=== PATIENT | male | born 1975 | race Caucasian/White ===

== ENCOUNTER 2020-03-01 13:41 | Emergency (ER) | payer OTHER ==
[2020-03-01] MEDS ORDERED: Zemuron 100 MG/10 ML IJ ONE (13:42)
[2020-03-01] MEDS ORDERED: Zofran 4 MG/2 ML VIAL ONE (13:57)
--- NOTE | 2020-03-01 14:06 | XRAY ---
Indication: Unresponsive. Multiple contiguous axial images obtained through the head without contrast. Comparison: None Acute intraventricular hemorrhage seen in all ventricles, greatest in the third ventricle measuring 3.3 x 2.8 x 2.1 cm. Mild hydrocephalus. No midline shift. Robin-white matter differentiation preserved. Bony calvarium intact. Visualized paranasal sinuses and mastoid air cells are clear. Impression: Diffuse acute intraventricular hemorrhage with mild hydrocephalus. Common etiologies include hypertension, vascular malformations, intra-ventricular tumors, or anticoagulation therapy/coagulopathy. Comment: Telephone report will be immediately given to the ordering clinician.
[2020-03-01 14:11] LABS: Absolute Neutrophil Ct (ANC) 12.04 (1.4-6.9); BASOPHIL % 0.4 % (0.0-0.4); Basophil (Absolute #) 0.06 (0-0.4); Eosinophil % 1.3 % (0.00-5.0); Hematocrit 43.8 % (42-50); Hemoglobin 15.2 gm/dl (12.5-18.0); Lymphocyte (Absolute #) 1.99 (1.0-4.6); Lymphocytes % 13.1 % (24.0-44.0); Mean Cell Volume 86.2 fl (78-100); Mean Corpuscular Hemoglobin 29.9 pg (26-32); Mean Corpuscular Hgb Concent. 34.7 g/dl (32-36); Mean Platelet Volume 10.7 fl (7.5-11.0); Monocyte (Absolute #) 0.94 (0.0-1.3); Monocytes % 6.2 % (0.0-12.0); Platelet Count 284 K/mm3 (150-450); Red Blood Count 5.08 M/mm3 (4.1-5.6); Red Cell Distribution Width 12.9 % (11.5-14.0); White Blood Count 15.2 K/mm3 (4.0-10.5)
[2020-03-01 14:14] LABS: INR 1.02 (0.8-3.0); PROTIME 11.5 SECONDS (8.83-12.87)
[2020-03-01 14:17] LABS: PTT 32.6 SECONDS (24.1-36.1)
[2020-03-01 14:19] LABS: ALBUMIN 4.5 g/dL (3.5-5.0); ALKALINE PHOSPHATASE 106 U/L (38-126); ANION GAP 9.4 MEQ/L (5-15); BLOOD UREA NITROGEN 10 mg/dL (9-20); CHLORIDE 105 mmol/L (98-107); Carbon Dioxide 27 mmol/L (22-30); EST GLOMERULAR FILTRATION RATE > 60.0 ML/MIN; Glucose 109 mg/dL (74-106); Potassium 4.3 mmol/L (3.5-5.1); SGOT/AST 49 U/L (17-59); SGPT/ALT 73 U/L (0-50); SODIUM 137 mmol/L (137-145); Total Protein 7.7 g/dL (6.3-8.2)
[2020-03-01 14:20] VITALS: O2SAT 98
[2020-03-01 14:30] LABS: A-aADO2 447; ABG POTASSIUM 3.9 (3.5-5.1); ABG SITE RIGHT RADIAL; ARTERIAL BLD GAS O2 SATURATION 99.4 % (95-100); ARTERIAL BLD GAS TIDAL VOLUME 550 cc; ARTERIAL BLOOD GAS FIO2 100 %; ARTERIAL BLOOD GAS PCO2 52 mmHg (35-45); ARTERIAL BLOOD GAS PO2 201 mmHg (75-100); ARTERIAL BLOOD GAS pH 7.28 (7.35-7.45); CARBOXYHEMOGLOBIN 2.4 % THgb (0.0-6.9); HCO3- 24.4 (22-28); HGB O2 SAT 95.9 g/dF (94-100); Lactic Acid 2.6 (0.4-2.0); Methhemoglobin 1.1 % (1.4-1.5); paO2 pAO1 0.31
--- NOTE | 2020-03-01 14:35 | ERPHSYRPT ---
- History of Present Illness Source: EMS, other () Exam Limitations: clinical condition Patient Subjective Stated Complaint: unresponsive Triage Nursing Assessment: Patient brought into ED via EMS and transferred to bed with assist of 4. Patient has snoring respirations noted. Patient has 20 gauze IV noted to left arm on arrival. Patient unsponsive at this time, alert to painful stimuli at this time. Patient's stated she had spoke to patient at 1100 and went to check on him around 1330 and he was unsponsive in bed with his pants off and had urinated himself and vomited. EMS was called per . Physician History: 44 yo wm w h/o HTN/Hyperlipidemia presents per EMS unresponsive. Pt wo purposeful movement and alert x0. He arrived hypertensive w good airway/effort. He last talked to his about an hour before he was found unresponsive wo evidence of trauma. L pupil enlarged and unreactive. Pt rushed to CT scan where a large interventricular hemorrhage was observed by myself. He was rushed back to ER where he vomited. He was given Versed 2.5mg x2/15mg IV Etomidate. Pt's sats good before intubation and during intubation. First intubation attempt w Mac3 blade/#8 ETT w possible esophageal intubation which was recognized im mediately. Tube was pulled, and pt was given 100mg IV suc. Pt easily intubated w new #8ETT using a Miller4 blade. Good change of color of detector w good BS. Tube pulled back 1cm x2 due to decreased BS L lung after auscultstion exam and CXR. Good BBS after tube pulled back/100mg Rocuronium given and Diprivan drip started. Allergies/Adverse Reactions: latex [Latex] Allergy (Severe, Verified 03/01/20 13:51) Rash throat swells Home Medications: Esomeprazole Magnesium [Nexium] 40 mg PO DAILY 10/30/12 [History] Atorvastatin Calcium [Lipitor 20MG Tablet] 1 tab PO DAILY 03/01/20 [History] Losartan Potassium [Cozaar] 1 tab PO DAILY 03/01/20 [History] PANTOPRAZOLE 40 mg Tablet [Protonix 40MG Tablet] 1 tab PO DAILY 03/01/20 [History] Hx Tetanus, Diphtheria Vaccination/Date Given: Yes Hx Influenza Vaccination/Date Given: Yes Hx Pneumococcal Vaccination/Date Given: No Immunizations Up to Date: Yes Travel Risk - International Travel Have you traveled outside of the country in past 3 weeks: No - Coronavirus Screening Are you exhibiting any of the following symptoms?: No Close contact with a COVID-19 positive Pt in past 14-21 Days: No - Past Medical History Pertinent Past Medical History: Yes Neurological History: Other ENT History: No Pertinent History Cardiac History: High Cholesterol, Hypertension Respiratory History: No Pertinent History Endocrine Medical History: No Pertinent History Musculoskeletal History: Other GI Medical History: GERD History: No Pertinent History Psycho-Social History: No Pertinent History Male Reproductive Disorders: No Pertinent History Other Medical History: 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 - Social History Smoking Status: Current every day smoker How long have you smoked: 20 yrs Exposure to second hand smoke: Yes Drug Use: none Patient Lives Alone: No - Nursing Vital Signs Nursing Vital Signs: Initial Vital Signs Pulse Rate 84 03/01/20 14:02 Respiratory Rate 20 03/01/20 14:02 Blood Pressure 158/102 03/01/20 14:02 O2 Sat by Pulse Oximetry 98 03/01/20 14:02 Pain Scale Pain Intensity 0 - Physical Exam SpO2: 98 Ordered Tests: Active Orders 24 hr Category Date Time Status HEAD WITHOUT CONTRAST [CT] Stat Exams 03/01/20 13:46 Completed CBC W DIFF Stat Lab 03/01/20 14:00 Completed CMP Stat Lab 03/01/20 14:00 Received CULTURE,URINE Stat Lab 03/01/20 14:19 Ordered D-DIMER QUANTITATIVE Stat Lab 03/01/20 14:00 Completed PROTIME WITH INR Stat Lab 03/01/20 14:00 Completed PTT Stat Lab 03/01/20 14:00 Completed TROPONIN Q3H Lab 03/01/20 14:15 Ordered TROPONIN Q3H Lab 03/01/20 17:15 Ordered TROPONIN Q3H Lab 03/01/20 20:15 Ordered TROPONIN Q3H Lab 03/01/20 23:15 Ordered UA W/RFX UR CULTURE Stat Lab 03/01/20 14:21 Ordered Urine Triage Profile Stat Lab 03/01/20 14:21 Ordered Medication Summary Discontinued Medications Generic Name Dose Route Start Last Admin Trade Name Chad PRN Reason Stop Dose Admin Ondansetron HCl Confirm 03/01/20 13:57 Zofran 4 Mg/2 Ml Vial Administered 03/01/20 13:58 Dose 4 mg .ROUTE .STK-MED ONE Lab/Rad Data: Laboratory Result Diagrams 03/01/20 14:00 Laboratory Results 03/01/20 03/01/20 Range/Units 14:00 14:00 WBC 15.2 H (4.0-10.5) K/mm3 RBC 5.08 (4.1-5.6) M/mm3 Hgb 15.2 (12.5-18.0) gm/dl Hct 43.8 (42-50) % MCV 86.2 (78-100) fl MCH 29.9 (26-32) pg MCHC 34.7 (32-36) g/dl RDW 12.9 (11.5-14.0) % Plt Count 284 (150-450) K/mm3 MPV 10.7 (7.5-11.0) fl Gran % 79.0 H (36.0-66.0) % Eos # (Auto) 0.20 (0-0.5) Absolute Lymphs (auto) 1.99 (1.0-4.6) Absolute Monos (auto) 0.94 (0.0-1.3) Lymphocytes % 13.1 L (24.0-44.0) % Monocytes % 6.2 (0.0-12.0) % Eosinophils % 1.3 (0.00-5.0) % Basophils % 0.4 (0.0-0.4) % Absolute Granulocytes 12.04 H (1.4-6.9) Basophils # 0.06 (0-0.4) PT 11.5 (8.83-12.87) SECONDS INR 1.02 (0.8-3.0) APTT 32.6 (24.1-36.1) SECONDS D-Dimer 243 (215-500) ng/mL - Departure Referrals: [facility]OS[facility],'[facility] [Primary Care Provider] -
--- NOTE | 2020-03-01 14:38 | ERPHSYRPT ---
- History of Present Illness Source: EMS, other () Exam Limitations: clinical condition Patient Subjective Stated Complaint: unresponsive Triage Nursing Assessment: Patient brought into ED via EMS and transferred to bed with assist of 4. Patient has snoring respirations noted. Patient has 20 gauze IV noted to left arm on arrival. Patient unsponsive at this time, alert to painful stimuli at this time. Patient's stated she had spoke to patient at 1100 and went to check on him around 1330 and he was unsponsive in bed with his pants off and had urinated himself and vomited. EMS was called per . Physician History: 44 yo wm last heard from around 11:00AM alert and oriented brought into ER unresponsive after being found down by . No evidence of trauma at scene and unresponsive to Narcan. Pt arrived without purposeful movement/blown L pupil/good airway/hypertensive. Pt rushed to CT scan where intraventricular bleed recognized immediately by myself. He was rushed back to ER where he was prepped for intubation. Pt vomited before intubation, so head turned and pt suctioned. Versed 2.5mg x2 given along w 15mg IV Etomidate. #8ETT placed after direct visualization w #3MAC blade. No change of color so tube pulled, and pt given 100mg IV Succinylcholine. Direct visualization w #4Miller blade w subsequent passage of #8ETT/Good BBS/+color change. Tube slightly R mainstemmed by auscultation exam and CXR, so tube pulled back w good BBS. Pt given 100mg IV Rocuronium, and Diprivan drip started. Timing/Duration: sudden Severity: severe Character of Deficits: general (difuse), unable to speak Baseline/Normal Cognition: alert oriented x 3 Current Cognition: poor alertness Baseline Gait: walks w/o assistance Associated Symptoms: confusion, nausea, vomiting Allergies/Adverse Reactions: latex [Latex] Allergy (Severe, Verified 03/01/20 13:51) Rash throat swells Home Medications: Esomeprazole Magnesium [Nexium] 40 mg PO DAILY 10/30/12 [History] Atorvastatin Calcium [Lipitor 20MG Tablet] 1 tab PO DAILY 03/01/20 [History] Losartan Potassium [Cozaar] 1 tab PO DAILY 03/01/20 [History] PANTOPRAZOLE 40 mg Tablet [Protonix 40MG Tablet] 1 tab PO DAILY 03/01/20 [History] Hx Tetanus, Diphtheria Vaccination/Date Given: Yes Hx Influenza Vaccination/Date Given: Yes Hx Pneumococcal Vaccination/Date Given: No Immunizations Up to Date: Yes Travel Risk - International Travel Have you traveled outside of the country in past 3 weeks: No - Coronavirus Screening Are you exhibiting any of the following symptoms?: No Close contact with a COVID-19 positive Pt in past 14-21 Days: No - Review of Systems All Other Systems: Unable due to condition - Past Medical History Pertinent Past Medical History: Yes Neurological History: Other ENT History: No Pertinent History Cardiac History: High Cholesterol, Hypertension Respiratory History: No Pertinent History Endocrine Medical History: No Pertinent History Musculoskeletal History: Other GI Medical History: GERD History: No Pertinent History Psycho-Social History: No Pertinent History Male Reproductive Disorders: No Pertinent History Other Medical History: 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 - Social History Smoking Status: Current every day smoker How long have you smoked: 20 yrs Exposure to second hand smoke: Yes Drug Use: none Patient Lives Alone: No Significant Family History: no pertinent family hx - Nursing Vital Signs Nursing Vital Signs: Initial Vital Signs Pulse Rate 84 03/01/20 14:02 Respiratory Rate 20 03/01/20 14:02 Blood Pressure 158/102 03/01/20 14:02 O2 Sat by Pulse Oximetry 98 03/01/20 14:02 Pain Scale Pain Intensity 0 - [place] Coma Scale Best Eye Response (Benjy): (1) no response Best Verbal Response ([place]): (1) no verbal response Best Motor Response ([place]): (4) withdraws to pain [place] Total: 6 - Physical Exam General Appearance: severe distress, other (Obtunded) Eye Exam: left eye: abnormal pupil (L pupil blown and unreactive) Ears, Nose, Throat Exam: normal ENT inspection, TMs normal, pharynx normal Neck Exam: normal inspection Respiratory: normal breath sounds, airway intact, No respiratory distress Cardiovascular: regular rate/rhythm, normal heart sounds, normal peripheral pulses, No murmur Gastrointestinal: soft, normal bowel sounds, No tenderness Male Genitalia: normal genitalia Back Exam: normal inspection Extremity Exam: normal inspection Peripheral Pulses: carotid (R): 2+, carotid (L): 2+ 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, 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 Exam: No normal speech, No PERRL, No abnormal eye position, No abnormal gag reflex Motor/Sensory: negative Babinski's sign DTR: bicep (R): 2+, bicep (L): 2+ Skin Exam: normal color, warm, dry SpO2 Interpretation: normal SpO2: 98 O2 Delivery: Room Air Procedures - Intubation Intubation Indications: airway protection Intubation Method: orotracheal, straight blade Tube Size (cm): 8.0 Medications: Midazolam (Versed), Etomidate, Succinylcholine C-Spine: maintained Endotracheal Tube Confirmation: bilateral breath sounds, positive end tidal CO2, good rise & fall of chest Intubation Complications: oral-unsuccessful attempt (First attempt unsuccessful but no drop in sats) Performed By: ED Physician Post Intubation Xray: Yes - Course Nursing assessment & vital signs reviewed: Yes - Radiology Exams Chest X-ray Interpretation: Reviewed by me, Discussed w/ radiologist (ETT in place) - CT Exams Head CT Interpretation: Discussed w/radiologist (Intraventricular bleed) Ordered Tests: Active Orders 24 hr Category Date Time Status CO2 Monitoring ROUTINE Care 03/01/20 15:49 Completed [facility] [Catheter-[place] [facility]] STAT Care 03/01/20 14:39 Completed IV Insertion STAT Care 03/01/20 14:38 Completed IV Insertion-2nd Peripheral STAT Care 03/01/20 14:38 Completed CHEST 1 VIEW (PORTABLE) Stat Exams 03/01/20 14:23 Completed HEAD WITHOUT CONTRAST [CT] Stat Exams 03/01/20 13:46 Completed ABG [ARTERIAL BLOOD GASES] Stat Lab 03/01/20 14:29 Completed CBC W DIFF Stat Lab 03/01/20 14:00 Completed CMP Stat Lab 03/01/20 14:00 Completed CULTURE,URINE Stat Lab 03/01/20 14:44 Received D-DIMER QUANTITATIVE Stat Lab 03/01/20 14:00 Completed Lactic Acid Stat Lab 03/01/20 14:29 Completed PROTIME WITH INR Stat Lab 03/01/20 14:00 Completed PTT Stat Lab 03/01/20 14:00 Completed UA W/RFX UR CULTURE Stat Lab 03/01/20 14:21 Completed Urine Triage Profile Stat Lab 03/01/20 14:21 Completed Intubate Patient STAT RT 03/01/20 15:48 Completed Standby STAT RT 03/01/20 15:48 Completed Vent Settings [Ventilator Management] STAT RT 03/01/20 15:48 Completed Medication Summary Discontinued Medications Generic Name Dose Route Start Last Admin Trade Name Chad PRN Reason Stop Dose Admin Fentanyl Citrate 100 mcg 03/01/20 15:17 03/01/20 15:21 Fentanyl 500 Mcg/10 Ml Vial IV 03/01/20 15:18 100 mcg ONCE STA Administration Fentanyl Citrate Confirm 03/01/20 15:17 Sublimaze 100 Mcg/2 Ml Administered 03/01/20 15:18 Dose 100 mcg .ROUTE .STK-MED ONE Labetalol HCl 20 mg 03/01/20 15:01 03/01/20 15:05 Trandate 20 Mg/4 Ml Syringe IV 03/01/20 15:02 20 mg STAT ONE Administration Labetalol HCl Confirm 03/01/20 15:04 Trandate 20 Mg/4 Ml Syringe Administered 03/01/20 15:05 Dose 20 mg IV .STK-MED ONE Labetalol HCl 20 mg 03/01/20 15:18 03/01/20 15:21 Trandate 20 Mg/4 Ml Syringe IV 03/01/20 15:19 20 mg STAT ONE Administration Labetalol HCl Confirm 03/01/20 15:17 Trandate 20 Mg/4 Ml Syringe Administered 03/01/20 15:18 Dose 20 mg IV .STK-MED ONE Ondansetron HCl Confirm 03/01/20 13:57 Zofran 4 Mg/2 Ml Vial Administered 03/01/20 13:58 Dose 4 mg .ROUTE .STK-MED ONE Lab/Rad Data: Laboratory Result Diagrams 03/01/20 14:00 03/01/20 14:00 Laboratory Results 03/01/20 03/01/20 03/01/20 Range/Units 14:29 14:21 14:21 WBC (4.0-10.5) K/mm3 RBC (4.1-5.6) M/mm3 Hgb (12.5-18.0) gm/dl Hct (42-50) % MCV (78-100) fl MCH (26-32) pg MCHC (32-36) g/dl RDW (11.5-14.0) % Plt Count (150-450) K/mm3 MPV (7.5-11.0) fl Gran % (36.0-66.0) % Eos # (Auto) (0-0.5) Absolute Lymphs (auto) (1.0-4.6) Absolute Monos (auto) (0.0-1.3) Lymphocytes % (24.0-44.0) % Monocytes % (0.0-12.0) % Eosinophils % (0.00-5.0) % Basophils % (0.0-0.4) % Absolute Granulocytes (1.4-6.9) Basophils # (0-0.4) PT (8.83-12.87) SECONDS INR (0.8-3.0) APTT (24.1-36.1) SECONDS D-Dimer (215-500) ng/mL Puncture Site RIGHT RADIAL pCO2 52 H (35-45) mmHg pO2 201 H* (75-100) mmHg Base Excess -3.0 L (-2.0-2.0) O2 Saturation 95.9 (94-100) g/dF ABG pH 7.28 L (7.35-7.45) ABG HCO3 24.4 (22-28) ABG O2 Sat (Measured) 99.4 (95-100) % Zaid Test NOT APPLICABLE A-a Gradient 447 a/A Ratio 0.31 Hemoglobin 16.0 Carboxyhemoglobin 2.4 (0.0-6.9) % THgb Methemoglobin 1.1 L (1.4-1.5) % Temperature 37.0 C POC O2 Flow Rate 100 % Tidal Volume 550 cc Sodium (137-145) mmol/L Potassium 3.9 (3.5-5.1) mmol/L Chloride (98-107) mmol/L Carbon Dioxide (22-30) mmol/L Anion Gap (5-15) MEQ/L BUN (9-20) mg/dL Creatinine (0.66-1.25) mg/dL Estimated GFR ML/MIN Glucose (74-106) mg/dL Lactic Acid 2.6 H (0.4-2.0) Calcium (8.4-10.2) mg/dL Total Bilirubin (0.2-1.3) mg/dL AST (17-59) U/L ALT (0-50) U/L Alkaline Phosphatase (38-126) U/L Serum Total Protein (6.3-8.2) g/dL Albumin (3.5-5.0) g/dL Urine Color YELLOW (YELLOW) Urine Appearance CLEAR (CLEAR) Urine pH 9.0 (5-6) Ur Specific [place] 1.010 (1.005-1.025) Urine Protein 30 (Negative) Urine Ketones NEGATIVE (NEGATIVE) Urine Blood NEGATIVE (0-5) [place]/ul Urine Nitrite NEGATIVE (NEGATIVE) Urine Bilirubin NEGATIVE (NEGATIVE) Urine Urobilinogen NEGATIVE (0-1) mg/dL Ur Leukocyte Esterase NEGATIVE (NEGATIVE) Urine WBC (Auto) NONE (0-5) /HPF Urine RBC (Auto) 0-2 (0-2) /HPF U Epithel Cells (Auto) NONE (FEW) /HPF Urine Bacteria (Auto) NONE (NEGATIVE) /HPF Urine Mucus (Auto) SLIGHT (NEGATIVE) /HPF Urine Culture Reflexed ORDERED SEPARATELY (NO) Urine Glucose NEGATIVE (NEGATIVE) mg/dL Urine Opiates Level NEGATIVE (NEGATIVE) Ur Methadone NEGATIVE (NEGATIVE) Urine Barbiturates NEGATIVE (NEGATIVE) Ur Phencyclidine (PCP) NEGATIVE (NEGATIVE) Urine Amphetamine NEGATIVE (NEGATIVE) U Benzodiazepine Level NEGATIVE (NEGATIVE) Urine Cocaine NEGATIVE (NEGATIVE) Urine Marijuana (THC) NEGATIVE (NEGATIVE) 03/01/20 03/01/20 03/01/20 Range/Units 14:00 14:00 14:00 WBC 15.2 H (4.0-10.5) K/mm3 RBC 5.08 (4.1-5.6) M/mm3 Hgb 15.2 (12.5-18.0) gm/dl Hct 43.8 (42-50) % MCV 86.2 (78-100) fl MCH 29.9 (26-32) pg MCHC 34.7 (32-36) g/dl RDW 12.9 (11.5-14.0) % Plt Count 284 (150-450) K/mm3 MPV 10.7 (7.5-11.0) fl Gran % 79.0 H (36.0-66.0) % Eos # (Auto) 0.20 (0-0.5) Absolute Lymphs (auto) 1.99 (1.0-4.6) Absolute Monos (auto) 0.94 (0.0-1.3) Lymphocytes % 13.1 L (24.0-44.0) % Monocytes % 6.2 (0.0-12.0) % Eosinophils % 1.3 (0.00-5.0) % Basophils % 0.4 (0.0-0.4) % Absolute Granulocytes 12.04 H (1.4-6.9) Basophils # 0.06 (0-0.4) PT 11.5 (8.83-12.87) SECONDS INR 1.02 (0.8-3.0) APTT 32.6 (24.1-36.1) SECONDS D-Dimer 243 (215-500) ng/mL Puncture Site pCO2 (35-45) mmHg pO2 (75-100) mmHg Base Excess (-2.0-2.0) O2 Saturation (94-100) g/dF ABG pH (7.35-7.45) ABG HCO3 (22-28) ABG O2 Sat (Measured) (95-100) % Zaid Test A-a Gradient a/A Ratio Hemoglobin Carboxyhemoglobin (0.0-6.9) % THgb Methemoglobin (1.4-1.5) % Temperature C POC O2 Flow Rate % Tidal Volume cc Sodium 137 (137-145) mmol/L Potassium 4.3 (3.5-5.1) mmol/L Chloride 105 (98-107) mmol/L Carbon Dioxide 27 (22-30) mmol/L Anion Gap 9.4 (5-15) MEQ/L BUN 10 (9-20) mg/dL Creatinine 0.90 (0.66-1.25) mg/dL Estimated GFR > 60.0 ML/MIN Glucose 109 H (74-106) mg/dL Lactic Acid (0.4-2.0) Calcium 9.0 (8.4-10.2) mg/dL Total Bilirubin 0.40 (0.2-1.3) mg/dL AST 49 (17-59) U/L ALT 73 H (0-50) U/L Alkaline Phosphatase 106 (38-126) U/L Serum Total Protein 7.7 (6.3-8.2) g/dL Albumin 4.5 (3.5-5.0) g/dL Urine Color (YELLOW) Urine Appearance (CLEAR) Urine pH (5-6) Ur Specific [place] (1.005-1.025) Urine Protein (Negative) Urine Ketones (NEGATIVE) Urine Blood (0-5) [place]/ul Urine Nitrite (NEGATIVE) Urine Bilirubin (NEGATIVE) Urine Urobilinogen (0-1) mg/dL Ur Leukocyte Esterase (NEGATIVE) Urine WBC (Auto) (0-5) /HPF Urine RBC (Auto) (0-2) /HPF U Epithel Cells (Auto) (FEW) /HPF Urine Bacteria (Auto) (NEGATIVE) /HPF Urine Mucus (Auto) (NEGATIVE) /HPF Urine Culture Reflexed (NO) Urine Glucose (NEGATIVE) mg/dL Urine Opiates Level (NEGATIVE) Ur Methadone (NEGATIVE) Urine Barbiturates (NEGATIVE) Ur Phencyclidine (PCP) (NEGATIVE) Urine Amphetamine (NEGATIVE) U Benzodiazepine Level (NEGATIVE) Urine Cocaine (NEGATIVE) Urine Marijuana (THC) (NEGATIVE) - Progress Progress: improved Progress Note: 03/01/20 21:10 After successful intubation, pt given 100mg IV rocuronium and diprivan drip started. Drip started at 5mg/Kg/Hr and titrated to decrease BP and heart rate. After drip titrated up to 50, 20mg IV Labetalol given w mild improvement in BP. [facility] called also immediately after intubation, and CT sent [facility]. After multiple calls to [facility] where nurse was disconnected, ER called and pt accepted by ER physician. [facility] called and arrived promptly. Pt given 100umg IV Fentanyl/20mg IV Labetalol when flight crew arrived due to persistent hypertension. Pt was critical but stable when carfe assumed by [facility]. continuously alerted about pt's condition and was in ER w pt during his stay. Counseled pt/family regarding: rad results - Departure Departure Disposition: Transfer Clinical Impression: Intraventricular hemorrhage Condition: Stable Critical Care Time: Yes Critical Care Time(excluding separately billable procedures): Critical 30-74 mins Referrals: [facility]OS[facility],'[facility] [Primary Care Provider] -
[2020-03-01 14:47] VITALS: BP 178/118; PULSE 88
--- NOTE | 2020-03-01 14:47 | XRAY ---
Indication: Intubation. Comparison: None Portable chest demonstrates endotracheal tube tip 4 cm above an. Lungs underinflated and clear. Heart is not enlarged. Bony thorax intact with incompletely visualized epidural leads terminating T10.
[2020-03-01 14:50] LABS: Appearance CLEAR (CLEAR); Bilirubin NEGATIVE (NEGATIVE); Blood NEGATIVE Ery/ul (0-5); Glucose NEGATIVE (NEGATIVE); Ketones NEGATIVE (NEGATIVE); Leukocyte Esterase NEGATIVE (NEGATIVE); Mucus SLIGHT /HPF (NEGATIVE); Nitrite NEGATIVE (NEGATIVE); Protein,Urine Dip 30 (Negative); RBC 0-2 /HPF (0-2); Urobilinogen NEGATIVE mg/dL (0-1)
[2020-03-01] MEDS ORDERED: VERSED 5 MG/5 ML ONE (15:00)
[2020-03-01] MEDS ORDERED: Amidate 20 MG/10 ML IV ONE (15:00)
[2020-03-01] MEDS ORDERED: Propofol 1000 mg/100 ml Bottle IV ONE (15:00)
[2020-03-01] MEDS ORDERED: Quelicin Fliptop 200 MG/10 ML ONE (15:00)
[2020-03-01 15:01] LABS: Amphetamine,Urine NEGATIVE (NEGATIVE); Barbiturate,Urine NEGATIVE (NEGATIVE); Benzodiazepine,Urine NEGATIVE (NEGATIVE); Cocaine,Urine NEGATIVE (NEGATIVE); Methadone,Urine NEGATIVE (NEGATIVE); Opiate,Urine NEGATIVE (NEGATIVE); PCP,Urine NEGATIVE (NEGATIVE); THC,Urine NEGATIVE (NEGATIVE)
[2020-03-01] MEDS ORDERED: TRANDATE 20 MG/4 ML SYRINGE IV ONE ×4 (15:01→15:18)
[2020-03-01] MEDS ORDERED: FENTANYL 500 MCG/10 ML VIAL IV STA (15:17)
[2020-03-01] MEDS ORDERED: SUBLIMAZE 100 MCG/2 ML ONE (15:17)
== END 2020-03-01 16:00 | disposition short-term general hospital (02) ==
LOC: ED 13:41
DX: I61.5 Nontraumatic intracerebral hemorrhage, intraventricular (principal); I10 Essential (primary) hypertension; E78.00 Pure hypercholesterolemia, unspecified; Z79.899 Other long term (current) drug therapy; K21.9 Gastro-esophageal reflux disease without esophagitis
CPT/HCPCS: 31500; 36000; 36415; 36600; 51702; 70450; 71045; 80053; 80307; 81001; 82375; 82803; 83605; 85025; 85379; 85610; 85730; 87086; 94002; 94799; 96365; 96374; 96375; 96376; 99285; 99291; J0330; J2250; J2405; J2704; J3010

== ENCOUNTER 2020-05-06 21:12 | Emergency (ER) | payer OTHER ==
[2020-05-06] MEDS ORDERED: Catapres 0.1 MG PO ONE (21:46)
[2020-05-06] MEDS ORDERED: Catapres 0.1 MG ONE (21:46)
--- NOTE | 2020-05-06 22:47 | ERPHSYRPT ---
- History of Present Illness Time Seen by Provider: 05/06/20 21:16 Source: patient, family Exam Limitations: no limitations Patient Subjective Stated Complaint: pt states "My said I had to come in because my blood sugar was high." Triage Nursing Assessment: pt ambulated into the er; pt is axo x2; c/o hyperglycemia; pt states blood sugar at home was 256; pt states he had a brain bleed on 03/01/20; pt states that he has 3 borehole to relief pressure on brain; pt states that he had a stroke due to the brain bleed; states that neurosurgeon told them to monitor blood sugar; states that pt has rt sided weakness due to stroke; pt has stagger gait; pt is slow to respond; pt blood sugar was 152 upon arrival; pt is hypertensive Physician History: 45 years old male with history of hypertension, diabetes mellitus with recent hypertensive related intracranial hemorrhage with stroke needing bur hole intervention at and right-sided residual weakness presented in the ER after his checked his blood pressure which was in 170s and blood sugar 256 while he was watching TV. Patient report he had a mild headache and was given Tylenol at home and now headache is resolved. He is slow to respond since his recent brain bleed but is at her his baseline. Denies any new difficulty vision but what he has diplopia in the left eye and no new weakness numbness but from previous stroke. Denies any chest pain palpitations or shortness of breath. Patient was told upon discharge to monitor blood pressure and keep it around 140 systolic to avoid another hypertensive related emergency. He does not have any headache at present. Allergies/Adverse Reactions: latex [Latex] Allergy (Severe, Verified 03/01/20 13:51) Rash throat swells Home Medications: Esomeprazole Magnesium [Nexium] 40 mg PO DAILY 10/30/12 [History] Atorvastatin Calcium [Lipitor 20MG Tablet] 1 tab PO HS 03/01/20 [History] Fluoxetine HCl 20 mg PO 05/06/20 [History] Meloxicam 15 mg PO 05/06/20 [History] Metformin HCl 500 mg PO BID 05/06/20 [History] Metoprolol Tartrate 25 mg PO BID 05/06/20 [History] Hx Tetanus, Diphtheria Vaccination/Date Given: Yes Hx Influenza Vaccination/Date Given: Yes Hx Pneumococcal Vaccination/Date Given: No Travel Risk - International Travel Have you traveled outside of the country in past 3 weeks: No - Coronavirus Screening Are you exhibiting any of the following symptoms?: No Close contact with a COVID-19 positive Pt in past 14-21 Days: No - Review of Systems Constitutional: No Symptoms Ears, Nose, & Throat: No Symptoms Respiratory: No Symptoms Cardiac: No Symptoms Abdominal/Gastrointestinal: No Symptoms Genitourinary Symptoms: No Symptoms Musculoskeletal: No Symptoms Skin: No Symptoms Neurological: Headache Psychological: No Symptoms Endocrine: No Symptoms Hematologic/Lymphatic: No Symptoms Immunological/Allergic: No Symptoms - Past Medical History Pertinent Past Medical History: Yes Neurological History: Other ENT History: No Pertinent History Cardiac History: High Cholesterol, Hypertension Respiratory History: No Pertinent History Endocrine Medical History: No Pertinent History Musculoskeletal History: Other GI Medical History: GERD History: No Pertinent History Psycho-Social History: No Pertinent History Male Reproductive Disorders: No Pertinent History Other Medical History: 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 - Social History Smoking Status: Current every day smoker How long have you smoked: 20 yrs Exposure to second hand smoke: Yes Drug Use: none Patient Lives Alone: No Significant Family History: no pertinent family hx - Nursing Vital Signs Nursing Vital Signs: Initial Vital Signs Temperature 98.7 F 05/06/20 21:22 Pulse Rate 78 05/06/20 21:22 Respiratory Rate 14 05/06/20 21:22 Blood Pressure 176/114 05/06/20 21:22 O2 Sat by Pulse Oximetry 97 05/06/20 21:22 Pain Scale Pain Intensity 0 - Physical Exam General Appearance: no apparent distress, alert Eye Exam: PERRL/EOMI Ears, Nose, Throat Exam: normal ENT inspection, TMs normal, pharynx normal Neck Exam: normal inspection, supple, full range of motion Respiratory Exam: normal breath sounds, lungs clear Cardiovascular Exam: regular rate/rhythm, normal heart sounds Gastrointestinal/Abdomen Exam: soft, No tenderness Extremity Exam: pelvis stable Neurologic Exam: alert, oriented x 3, cooperative, motor deficits, sensory deficit (Right upper and lower right upper and lower), EOM palsy, No nml cerebellar function, No nml station & gait Skin Exam: normal color SpO2 Interpretation: normal SpO2: 97 O2 Delivery: Room Air Ordered Tests: Medication Summary Discontinued Medications Generic Name Dose Route Start Last Admin Trade Name Chad PRN Reason Stop Dose Admin Clonidine 0.2 mg 05/06/20 21:46 05/06/20 22:07 Catapres 0.1 Mg PO 05/06/20 21:47 0.2 mg STAT ONE Administration Clonidine Confirm 05/06/20 21:46 Catapres 0.1 Mg Administered 05/06/20 21:47 Dose 0.2 mg .ROUTE .STK-MED ONE Lab/Rad Data: Laboratory Results 05/06/20 Range/Units 21:23 POC Glucometer 152 H (74 to 106) mg/dL - Progress Progress: improved, re-examined Progress Note: 05/06/20 22:45 Patient has no neuro symptoms on presentation. His headache is resolved completely. His blood pressure is still in 160s and I have given him clonidine and it is improved now. I have obtained CT head without contrast because of his recent history of bleed and headache which although is resolved and is negative for any acute findings. Blood sugar was 150s on arrival. I do not think patient needs any other work-up . Patient does have appointment with his neurosurgeon tomorrow morning. Discussed signs symptoms of worsening needing return to ER which he seems understanding. Stable for discharge Counseled pt/family regarding: lab results, diagnosis, need for follow-up, rad results - Departure Departure Disposition: Home Clinical Impression: Uncontrolled hypertension Headache Qualifiers: Headache type: other headache syndrome Qualified Code(s): G44.89 - Other headache syndrome Condition: Stable Critical Care Time: No Referrals: [facility]OSPITAL,'[facility] [Primary Care Provider] - Instructions: Hyperglycemia, Adult (DC), Malignant Hypertension (DC) Additional Instructions: Keep appointment with your neurosurgeon tomorrow as scheduled. Use Tylenol as needed for headache. Follow-up with your primary care at [facility] in the next couple of days. Controlled your blood pressure and keep it around 140 systolic as recommended. Low-salt diet. Keep a log of your blood pressure and follow-up with your primary care for adjustment in blood pressure medications as needed. Return to ER for increasing headache, uncontrolled hypertension or blood glucose.
[2020-05-06 23:42] VITALS: BP 148/101; PULSE 71
--- NOTE | 2020-05-07 08:53 | XRAY ---
Indication: CVA. High blood pressure. History intracranial hemorrhage. Multiple contiguous axial images obtained through the head without contrast. Comparison: March 01, 2020. Previous intraventricular hemorrhage has resolved. There is a new 1.5 cm focus of hypoattenuation just left lateral to third ventricle favoring encephalomalacia. Age-appropriate global atrophy. No acute intracranial hemorrhage, abnormal extra-axial fluid collection, or mass effect. Fourth ventricle is midline without hydrocephalus. Robin-white matter differentiation is preserved. Bony calvarium demonstrates new bifrontal farrah holes. Visualized paranasal sinuses and mastoid air cells are clear. Impression: 1. New small focus encephalomalacia left lateral to third ventricle presumed sequela to previous hemorrhage. 2. No acute intracranial abnormalities.
[2020-05-09 07:29] VITALS: O2SAT 97
== END 2020-05-06 23:42 | disposition home or self-care (01) ==
LOC: ED 21:12
DX: G44.89 Other headache syndrome (principal); I10 Essential (primary) hypertension; E11.9 Type 2 diabetes mellitus without complications; Z79.899 Other long term (current) drug therapy; E78.00 Pure hypercholesterolemia, unspecified
CPT/HCPCS: 70450; 82947; 99284; A9270-GY

== ENCOUNTER 2021-02-15 08:23 | Emergency (ER) | payer OTHER ==
--- NOTE | 2021-02-15 08:48 | ERPHSYRPT ---
- History of Present Illness Time Seen by Provider: 02/15/21 08:43 Historian: patient Exam Limitations: no limitations Patient Subjective Stated Complaint: Pt states "My stomach hurts." Triage Nursing Assessment: Pt presented alert and oriented X 3, skin pwd Pt ambulates while guarding his loft lower abdomen. PT tachypneic, anxious. Physician History: 45-year-old male with history of hypertension, hyperlipidemia, diabetes mellitus, intraventricular bleed presented to the ER with chief complaint of sudden onset left flank/left lower quadrant pain waking him up from sleep almost 2 hours ago, continuous, moderate to severe intensity, dull to sharp, more with palpation and no significant relieving factors. Also reports associated nausea and 2 episodes of nonprojectile, nonbilious vomiting. Denies any urinary co mplaints. No fever chills or sick contact reported. Denies any constipation or diarrhea. Timing/Duration: today Activities at Onset: sleep Quality: dullness, sharpness Abdominal Pain Onset Location: LLQ, flank Pain Radiation: no radiation Severity of Pain-Max: severe Severity of Pain-Current: severe Modifying Factors: Worsens With: movement, palpation Associated Symptoms: nausea, vomiting Previous symptoms: no prior history Allergies/Adverse Reactions: latex [Latex] Allergy (Severe, Verified 03/01/20 13:51) Rash throat swells Home Medications: Esomeprazole Magnesium [Nexium] 40 mg PO DAILY 10/30/12 [History] Atorvastatin Calcium [Lipitor 20MG Tablet] 1 tab PO HS 03/01/20 [History] Fluoxetine HCl 20 mg PO DAILY 05/06/20 [History] Meloxicam 15 mg PO DAILY 05/06/20 [History] Metformin HCl 500 mg PO BID 05/06/20 [History] Metoprolol Tartrate 25 mg PO BID 05/06/20 [History] Hx Tetanus, Diphtheria Vaccination/Date Given: Yes Hx Influenza Vaccination/Date Given: Yes Hx Pneumococcal Vaccination/Date Given: No Immunizations Up to Date: Yes Travel Risk - International Travel Have you traveled outside of the country in past 3 weeks: No - Coronavirus Screening Are you exhibiting any of the following symptoms?: No Close contact with a COVID-19 positive Pt in past 14-21 Days: No - Vaccine Status Have you recieved a Covid-19 vaccination: No - Review of Systems Constitutional: No Symptoms Eyes: No Symptoms Ears, Nose, & Throat: No Symptoms Respiratory: No Symptoms Cardiac: No Symptoms Abdominal/Gastrointestinal: Abdominal Pain, Nausea, Vomiting Genitourinary Symptoms: No Symptoms Musculoskeletal: No Symptoms Skin: No Symptoms Neurological: No Symptoms Psychological: No Symptoms Endocrine: No Symptoms Hematologic/Lymphatic: No Symptoms Immunological/Allergic: No Symptoms - Past Medical History Pertinent Past Medical History: Yes Neurological History: Other ENT History: No Pertinent History Cardiac History: High Cholesterol, Hypertension Respiratory History: No Pertinent History Endocrine Medical History: No Pertinent History Musculoskeletal History: Other GI Medical History: GERD History: No Pertinent History Psycho-Social History: No Pertinent History Male Reproductive Disorders: No Pertinent History Other Medical History: 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 - Social History Smoking Status: Current every day smoker How long have you smoked: 20 yrs Exposure to second hand smoke: Yes Drug Use: none Patient Lives Alone: No Significant Family History: no pertinent family hx - Nursing Vital Signs Nursing Vital Signs: Initial Vital Signs Temperature 97.2 F 02/15/21 08:29 Pulse Rate 69 02/15/21 08:29 Respiratory Rate 28 H 02/15/21 08:29 Blood Pressure 164/106 02/15/21 08:29 O2 Sat by Pulse Oximetry 100 02/15/21 08:29 Pain Scale Pain Intensity 6 - Physical Exam General Appearance: no apparent distress, alert Eye Exam: No scleral icterus Ears, Nose, Throat Exam: normal ENT inspection, pharynx normal Neck Exam: normal inspection, non-tender, supple, full range of motion Respiratory Exam: normal breath sounds, lungs clear Cardiovascular Exam: regular rate/rhythm, normal heart sounds Gastrointestinal/Abdomen Exam: soft, normal bowel sounds, tenderness (Left flank/left lower quadrant) Back Exam: normal inspection, normal range of motion, CVA tenderness (Left) Extremity Exam: normal inspection, normal range of motion Neurologic Exam: alert, oriented x 3, cooperative Skin Exam: normal color SpO2 Interpretation: normal SpO2: 100 O2 Delivery: Room Air Ordered Tests: Active Orders 24 hr Category Date Time Status IV Insertion STAT Care 02/15/21 08:44 Active NPO (ED) STAT Care 02/15/21 08:44 Active ABDOMEN AND PELVIS W/0 CONTRAS [CT] Stat Exams 02/15/21 08:44 Completed CBC W DIFF Stat Lab 02/15/21 08:45 Completed CMP Stat Lab 02/15/21 08:45 Completed CULTURE,URINE Stat Lab 02/15/21 09:52 Received LIPASE Stat Lab 02/15/21 08:45 Completed Lactic Acid Stat Lab 02/15/21 08:44 Ordered UA W/RFX UR CULTURE Stat Lab 02/15/21 09:52 Completed Medication Summary Discontinued Medications Generic Name Dose Route Start Last Admin Trade Name Freq PRN Reason Stop Dose Admin Ciprofloxacin 500 mg 02/15/21 12:17 02/15/21 12:21 Ciprofloxacin 500 Mg Tablet PO 02/15/21 12:18 500 mg ONCE STA Administration Ciprofloxacin Confirm 02/15/21 12:21 Ciprofloxacin 500 Mg Tablet Administered 02/15/21 12:22 Dose 500 mg .ROUTE .STK-MED ONE Sodium Chloride 1,000 mls @ 999 mls/hr 02/15/21 08:44 02/15/21 10:10 Sodium Chloride 0.9% 1000 Ml IV 02/15/21 09:44 Infused .Q1H1M STA Infusion Sodium Chloride Confirm 02/15/21 08:55 Sodium Chloride 0.9% 1000 Ml Administered 02/15/21 08:56 Dose 1,000 mls @ ud .ROUTE .STK-MED ONE Sodium Chloride Confirm 02/15/21 10:27 Sodium Chloride 0.9% 1000 Ml Administered 02/15/21 10:28 Dose 1,000 mls @ ud .ROUTE .STK-MED ONE Sodium Chloride 1,000 mls @ 999 mls/hr 02/15/21 10:52 02/15/21 11:54 Sodium Chloride 0.9% 1000 Ml IV 02/15/21 11:52 Infused .Q1H1M STA Infusion Morphine Sulfate 4 mg 02/15/21 08:44 02/15/21 08:57 Morphine Sulfate 4 Mg/Ml Injection IV 02/15/21 08:45 4 mg STAT ONE Administration Morphine Sulfate Confirm 02/15/21 08:55 Morphine Sulfate 4 Mg/Ml Injection Administered 02/15/21 08:56 Dose 4 mg .ROUTE .STK-MED ONE Morphine Sulfate 4 mg 02/15/21 10:45 02/15/21 10:55 Morphine Sulfate 4 Mg/Ml Injection IV 02/15/21 10:46 4 mg STAT ONE Administration Morphine Sulfate Confirm 02/15/21 10:54 Morphine Sulfate 4 Mg/Ml Injection Administered 02/15/21 10:55 Dose 4 mg .ROUTE .STK-MED ONE Ondansetron HCl 4 mg 02/15/21 08:44 02/15/21 08:57 Ondansetron Hcl 4 Mg/2 Ml Vial IV 02/15/21 08:45 4 mg STAT ONE Administration Ondansetron HCl Confirm 02/15/21 08:55 Ondansetron Hcl 4 Mg/2 Ml Vial Administered 02/15/21 08:56 Dose 4 mg .ROUTE .STK-MED ONE Tamsulosin HCl 0.8 mg 02/15/21 11:33 02/15/21 11:37 Tamsulosin Hcl 0.4 Mg Cap PO 02/15/21 11:34 0.8 mg ONCE STA Administration Tamsulosin HCl Confirm 02/15/21 11:36 Tamsulosin Hcl 0.4 Mg Cap Administered 02/15/21 11:37 Dose 0.8 mg .ROUTE .STK-MED ONE Lab/Rad Data: Laboratory Result Diagrams 02/15/21 08:45 02/15/21 08:45 Laboratory Results 02/15/21 02/15/21 02/15/21 Range/Units 09:52 08:45 08:45 WBC 9.7 (4.0-10.5) K/mm3 RBC 5.20 (4.1-5.6) M/mm3 Hgb 15.2 (12.5-18.0) gm/dl Hct 45.2 (42-50) % MCV 86.9 (78-100) fl MCH 29.2 (26-32) pg MCHC 33.6 (32-36) g/dl RDW 13.3 (11.5-14.0) % Plt Count 240 (150-450) K/mm3 MPV 11.1 H (7.5-11.0) fl Gran % 61.5 (36.0-66.0) % Eos # (Auto) 0.36 (0-0.5) Absolute Lymphs (auto) 2.61 (1.0-4.6) Absolute Monos (auto) 0.72 (0.0-1.3) Lymphocytes % 27.0 (24.0-44.0) % Monocytes % 7.4 (0.0-12.0) % Eosinophils % 3.7 (0.00-5.0) % Basophils % 0.4 (0.0-0.4) % Absolute Granulocytes 5.95 (1.4-6.9) Basophils # 0.04 (0-0.4) Sodium 142 (137-145) mmol/L Potassium 4.2 (3.5-5.1) mmol/L Chloride 105 (98-107) mmol/L Carbon Dioxide 20 L (22-30) mmol/L Anion Gap 20.1 H (5-15) MEQ/L BUN 15 (9-20) mg/dL Creatinine 1.07 (0.66-1.25) mg/dL Estimated GFR > 60.0 ML/MIN Glucose 235 H (74-106) mg/dL Calcium 10.2 (8.4-10.2) mg/dL Total Bilirubin 0.60 (0.2-1.3) mg/dL AST 67 H (17-59) U/L ALT 82 H (0-50) U/L Alkaline Phosphatase 128 H (38-126) U/L Serum Total Protein 7.5 (6.3-8.2) g/dL Albumin 4.7 (3.5-5.0) g/dL Lipase 97 (23-300) U/L Urine Color YELLOW (YELLOW) Urine Appearance SLIGHTLY HAZY (CLEAR) Urine pH 5.0 (5-6) Ur Specific [place] 1.022 (1.005-1.025) Urine Protein 30 (Negative) Urine Ketones TRACE (NEGATIVE) Urine Blood LARGE (0-5) [place]/ul Urine Nitrite NEGATIVE (NEGATIVE) Urine Bilirubin NEGATIVE (NEGATIVE) Urine Urobilinogen NEGATIVE (0-1) mg/dL Ur Leukocyte Esterase NEGATIVE (NEGATIVE) Urine WBC (Auto) 3-5 (0-5) /HPF Urine RBC (Auto) 26-50 (0-2) /HPF U Epithel Cells (Auto) RARE (FEW) /HPF Urine Bacteria (Auto) FEW (NEGATIVE) /HPF Urine Mucus (Auto) SLIGHT (NEGATIVE) /HPF Urine Culture Reflexed YES (NO) Urine Glucose >=500 (NEGATIVE) mg/dL - Progress Progress: improved, re-examined Progress Note: 02/15/21 12:18 45-year-old is evaluated for left flank pain with vomiting. Patient is given symptomatic treatment for pain along with fluid bolus x2. Work-up showed normal white count, elevated gap and some elevation of liver enzymes. Stable renal functions. I have obtained CT abdomen pelvis without contrast which showed 3 mm proximal ureteral stone with some hydronephrosis suggesting partial obstruction. He is also given Flomax. No UTI. Will give prophylactic antibiotics because of questionable obstruction although is partial. Urologist office is called and appointment is scheduled. Discussed signs symptoms of worsening needing return to ER which he seems understanding. Stable for discharge. Counseled pt/family regarding: lab results, diagnosis, need for follow-up, rad results - Departure Departure Disposition: Home Clinical Impression: Ureterolithiasis Condition: Stable Critical Care Time: No Referrals: HOSP[facility],'S [Primary Care Provider] - Follow up/PCP as directed (Call for reevaluation and referral to urologist in [place] Dr. Aguilar) CARMEN AGUILAR [COURTESY STAFF] - (As recommended) Instructions: Kidney Stones (DC) Additional Instructions: Take pain medications as needed. Follow-up with primary care and urology for reevaluation. Return to ER for intractable pain/vomiting, difficulty urination, fever chills etc. Prescriptions: Hydrocodone/Acetaminophen [Hydrocodone-Acetamin 7.5-325] 1 each PO Q6HPRN PRN 3 Days #12 tablet MDD 4 PRN Reason: Pain Ciprofloxacin [Cipro 500 MG] 500 mg PO BID #14 tablet Tamsulosin HCl 0.4 mg [Flomax 0.4 MG] 0.4 mg PO DAILY #30 cap
[2021-02-15] MEDS ORDERED: MORPHINE SULFATE 4 MG INJ ONE ×2 (08:55→10:54)
[2021-02-15] MEDS ORDERED: Zofran 4 MG/2 ML VIAL ONE (08:55)
[2021-02-15] MEDS ORDERED: Sodium Chloride 0.9% 1000 ML 1,000 ML ONE ×2 (08:55→10:27)
[2021-02-15] MEDS: Sodium Chloride 0.9% 1000 ML 1,000 ML IV STA ×2 (08:56→10:53)
[2021-02-15] MEDS: Zofran 4 MG/2 ML VIAL IV ONE (08:57)
[2021-02-15] MEDS: MORPHINE SULFATE 4 MG INJ IV ONE ×2 (08:57→10:55)
[2021-02-15 09:04] LABS: Absolute Neutrophil Ct (ANC) 5.95 (1.4-6.9); BASOPHIL % 0.4 % (0.0-0.4); Basophil (Absolute #) 0.04 (0-0.4); Eosinophil % 3.7 % (0.00-5.0); Eosinophil (Absolute #) 0.36 (0-0.5); Hematocrit 45.2 % (42-50); Hemoglobin 15.2 gm/dl (12.5-18.0); Lymphocyte (Absolute #) 2.61 (1.0-4.6); Mean Cell Volume 86.9 fl (78-100); Mean Corpuscular Hemoglobin 29.2 pg (26-32); Mean Corpuscular Hgb Concent. 33.6 g/dl (32-36); Mean Platelet Volume 11.1 fl (7.5-11.0); Monocyte (Absolute #) 0.72 (0.0-1.3); Monocytes % 7.4 % (0.0-12.0); Neutrophil % 61.5 % (36.0-66.0); Platelet Count 240 K/mm3 (150-450); Red Cell Distribution Width 13.3 % (11.5-14.0); White Blood Count 9.7 K/mm3 (4.0-10.5)
--- NOTE | 2021-02-15 09:25 | XRAY ---
Indication: Left flank pain. Nausea and vomiting. Multiple contiguous axial images obtained through the abdomen and pelvis without contrast using renal stone protocol. Comparison: None Lung bases demonstrates minimal bilateral dependent atelectasis. No infiltrate or effusion. Heart not enlarged. There is a 2-3 mm proximal left ureter calculus approximately L2-L3 level. Heart small left ureter is minimally prominent and there is minimal hydronephrosis favoring partial obstruction. No other renal calculus. Noncontrasted stomach and bowel loops appear nonobstructed. Normal appendix. No free fluid/air. Diffuse fatty hepatomegaly measuring 21.5 cm. Remaining liver, gallbladder, pancreas, spleen, adrenal glands, kidneys, ureters, and bladder are unremarkable for noncontrast exam. Minimal aortic calcifications without AAA. Osseous structures intact. Incidental left lower back epidural stimulator device and leads. Impression: 1. 2-3 mm proximal left ureter calculus producing partial obstructive uropathy. 2. Fatty hepatomegaly.
[2021-02-15 09:36] LABS: ALBUMIN 4.7 g/dL (3.5-5.0); ALKALINE PHOSPHATASE 128 U/L (38-126); ANION GAP 20.1 MEQ/L (5-15); BLOOD UREA NITROGEN 15 mg/dL (9-20); CHLORIDE 105 mmol/L (98-107); Calcium 10.2 mg/dL (8.4-10.2); Carbon Dioxide 20 mmol/L (22-30); Creatinine 1 1.07 mg/dL (0.66-1.25); EST GLOMERULAR FILTRATION RATE > 60.0 ML/MIN; Glucose 235 mg/dL (74-106); LIPASE 97 U/L (23-300); Potassium 4.2 mmol/L (3.5-5.1); SGOT/AST 67 U/L (17-59); SGPT/ALT 82 U/L (0-50); SODIUM 142 mmol/L (137-145); Total Protein 7.5 g/dL (6.3-8.2)
[2021-02-15 10:01] LABS: Bacteria FEW /HPF (NEGATIVE); Bilirubin NEGATIVE (NEGATIVE); Blood LARGE Ery/ul (0-5); Glucose >=500 mg/dL (NEGATIVE); Ketones TRACE (NEGATIVE); Leukocyte Esterase NEGATIVE (NEGATIVE); Mucus SLIGHT /HPF (NEGATIVE); Nitrite NEGATIVE (NEGATIVE); Protein,Urine Dip 30 (Negative); RBC 26-50 /HPF (0-2); Specific Gravity 1.022 (1.005-1.025); Urobilinogen NEGATIVE mg/dL (0-1)
[2021-02-15 10:33] LABS: Appearance SLIGHTLY HAZY (CLEAR); Epithelial Cells RARE /HPF (FEW)
[2021-02-15] MEDS ORDERED: Flomax 0.4 MG ONE (11:36)
[2021-02-15] MEDS: Flomax 0.4 MG PO STA (11:37)
[2021-02-15 12:16] VITALS: BP 127/107
[2021-02-15] MEDS ORDERED: Cipro 500 MG ONE (12:21)
[2021-02-15] MEDS: Cipro 500 MG PO STA (12:21)
[2021-02-15 12:45] VITALS: PULSE 88; O2SAT 96
== END 2021-02-15 12:45 | disposition home or self-care (01) ==
LOC: ED 08:23
DX: N20.1 Calculus of ureter (principal); R11.2 Nausea with vomiting, unspecified; I10 Essential (primary) hypertension; E78.5 Hyperlipidemia, unspecified; E11.8 Type 2 diabetes mellitus with unspecified complications; Z79.84 Long term (current) use of oral hypoglycemic drugs; Z72.0 Tobacco use; Z79.891 Long term (current) use of opiate analgesic
CPT/HCPCS: 36000; 36415; 74176; 80053; 81001; 83690; 85025; 87086; 96360; 96374; 96375; 96376; 99284; J2270; J2405; A9270-GY

== ENCOUNTER 2023-07-30 19:43 | Emergency (ER) | payer MEDICARE, OTHER ==
[2023-07-30 20:01] VITALS: TEMP 98.3
--- NOTE | 2023-07-30 20:13 | ERPHSYRPT ---
- History of Present Illness Time Seen by Provider: 07/30/23 19:55 Source: patient Exam Limitations: no limitations Patient Subjective Stated Complaint: pt states "I think my sugar is high. I started feeling weak and getting tunnel vision when I was taking a shower. I took my sugar at home and it was 290 something" Triage Nursing Assessment: pt ambulatory to bed from wheelchair with stand by assist, pt alert to place and self, pupils unequal, R is more constricted. hand soap maker equal and strong bilaterally, no drift noted to bilateral lower and upper extremities. speech clear, fsbs 227 Physician History: Patient is 48 year old patient with a history of diabetes and past interventricular hemorrhage who was taking a shower and felt generalized weakness and tunnel vision. Patient found his blood sugar 290 at home. Patient denies any chest pain, shortness of breath, back pain, weakness in his arms or leg, loss of sensation, loss of speech or slurred speech, new facial drop, new black or red stools or new blood in his urine or painful urination. Timing/Duration: hour(s) (1) Severity: moderate Modifying Factors: Improves With: nothing Associated Symptoms: other (Generalized weakness), No nausea, No vomiting, No abdominal pain, No shortness of breath, No heartburn, No diaphoresis, No cough, No chills, No chest pain, No fever, No headaches, No loss of appetite, No malaise, No rash, No syncope, No seizure Allergies/Adverse Reactions: latex [Latex] Allergy (Severe, Verified 07/30/23 19:44) Rash throat swells Home Medications: Esomeprazole Magnesium [Nexium] 40 mg PO DAILY 10/30/12 [History] Atorvastatin Calcium [Lipitor 20MG Tablet] 1 tab PO HS 03/01/20 [History] Fluoxetine HCl 20 mg PO DAILY 05/06/20 [History] Meloxicam 15 mg PO DAILY 05/06/20 [History] Metformin HCl 500 mg PO BID 05/06/20 [History] Metoprolol Tartrate 25 mg PO BID 05/06/20 [History] Hx Tetanus, Diphtheria Vaccination/Date Given: Yes Hx Influenza Vaccination/Date Given: Yes Hx Pneumococcal Vaccination/Date Given: No Immunizations Up to Date: (unk) Travel Risk - International Travel Have you traveled outside of the country in past 3 weeks: No - Emerging Infectious Disease Are you exhibiting symptoms associated with any current EIDs: No - Review of Systems Constitutional: Malaise, Weakness, No Fever, No Chills Eyes: Vision Changes (Tunnel vision), No Eye Pain, No Double Vision, No Foreign Body Sensation Ears, Nose, & Throat: No Symptoms, No Ear Pain, No Ear Discharge, No Mouth Pain, No Mouth Swelling Respiratory: No Cough, No Dyspnea Cardiac: No Chest Pain, No Edema, No Syncope Abdominal/Gastrointestinal: No Abdominal Pain, No Nausea, No Vomiting, No Diarrhea Genitourinary Symptoms: No Dysuria Musculoskeletal: No Back Pain, No Neck Pain Skin: No Rash Neurological: No Dizziness, No Focal Weakness, No Sensory Changes Psychological: No Symptoms Endocrine: No Symptoms Hematologic/Lymphatic: No Easy Bleeding, No Gum Bleeding All Other Systems: Reviewed and Negative - Past Medical History Pertinent Past Medical History: Yes Neurological History: Other ENT History: No Pertinent History Cardiac History: High Cholesterol, Hypertension Respiratory History: No Pertinent History Endocrine Medical History: No Pertinent History, Diabetes Type II Musculoskeletal History: Other GI Medical History: GERD History: No Pertinent History Psycho-Social History: No Pertinent History Male Reproductive Disorders: No Pertinent History Other Medical History: 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 Significant Family History: no pertinent family hx - Social History Smoking Status: Current every day smoker How long have you smoked: 20 yrs Exposure to second hand smoke: No Drug Use: none Patient Lives Alone: No - Social Determinants of Health Will the patient participate in the screening: Yes Do you worry about a steady place to live?: No Do you have any problems with any of the following?: No known problems In the past 12 months,have you had to go without utilities?: No Transportation Issues: No Has anyone in your support network made you feel unsafe?: No Have you or anyone in your house had to go without enough: No - Nursing Vital Signs Nursing Vital Signs: Initial Vital Signs Temperature 98.3 F 07/30/23 19:44 Pulse Rate 100 H 07/30/23 19:44 Respiratory Rate 18 07/30/23 19:44 Blood Pressure 155/109 07/30/23 19:44 O2 Sat by Pulse Oximetry 97 07/30/23 19:44 Pain Scale Pain Intensity 0 - Physical Exam General Appearance: no apparent distress, alert Eye Exam: eyes nml inspection, other (Positive anisocoria with left pupil greater in size than the right), No scleral icterus, No photophobia Ears, Nose, Throat Exam: normal ENT inspection, TMs normal, pharynx normal, moist mucous membranes Neck Exam: normal inspection, non-tender, supple, full range of motion Respiratory Exam: normal breath sounds, lungs clear, No respiratory distress Cardiovascular Exam: regular rate/rhythm, normal heart sounds, normal peripheral pulses Gastrointestinal/Abdomen Exam: soft, normal bowel sounds, No tenderness, No mass Back Exam: normal inspection, normal range of motion, No CVA tenderness, No vertebral tenderness Extremity Exam: normal inspection, normal range of motion, pelvis stable Neurologic Exam: alert, oriented x 3, cooperative, testing specialist II-XII nml as tested, normal mood/affect, nml cerebellar function, nml station & gait, sensation nml, No motor deficits Skin Exam: normal color, warm, dry, No rash, No petechiae, No jaundice Lymphatic Exam: No adenopathy SpO2 Interpretation: normal SpO2: 97 - Course Nursing assessment & vital signs reviewed: Yes EKG Interpreted by Me: RATE (98), Sinus Rhythm, NORMAL AXIS, NORMAL INTERVALS, NORMAL QRS, Other (Normal sinus rhythm at 90 bpm, normal axis, normal MO and QTc intervals, no acute ST or T wave changes; negative previous EKG for comparison Overall impression: Normal sinus rhythm, normal EKG) - Radiology Exams Chest X-ray Interpretation: Interpreted by me, Reviewed by me, Negative, No Fracture, No Pneumonia, No Pneumothorax, Nml Heart Size, No Infiltrates, Nml Mediastinum - CT Exams Head CT Interpretation: Tele-radiologist Report, No/Intracranial Hemorrhag, Old Stroke (Stable small old infarct in the left lateral third ventricle.), Other (New 3 cm right maxillary sinus polyp/cyst. Remaining head negative) Other CT Interpretation: Negative, Tele-radiologist Report, Other (CTA head and neck is normal with no signs of any thrombosis, hemorrhage, aneurysm per radiologist interpretation) Ordered Tests: Active Orders 24 hr Category Date Time Status Ambulate Patient ROUTINE Care 07/30/23 20:09 Active Field Traffic Investigator STAT Care 07/30/23 20:11 Active EKG-ER Only STAT Care 07/30/23 20:09 Active IV Insertion STAT Care 07/30/23 20:07 Active IV Insertion-2nd Peripheral STAT Care 07/30/23 20:07 Active CHEST 1 VIEW (PORTABLE) Stat Exams 07/30/23 20:[address] ANGIOGRAPHY NECK [CT] Stat Exams 07/30/23 21:39 Taken CTA HEAD W AND/OR WO CONTRAST [CT] Stat Exams 07/30/23 21:01 Taken HEAD WITHOUT CONTRAST [CT] Stat Exams 07/30/23 19:52 Taken CBC W DIFF Stat Lab 07/30/23 20:10 Completed CMP Stat Lab 07/30/23 20:10 Completed CULTURE,URINE Stat Lab 07/30/23 21:28 Received ETHYL ALCOHOL Stat Lab 07/30/23 20:10 Completed Lactic Acid Stat Lab 07/30/23 20:09 Completed Lactic Acid Stat Lab 07/30/23 22:31 Completed MAGNESIUM Stat Lab 07/30/23 20:10 Completed POCT GLUCOSE Stat Lab 07/30/23 19:51 Completed TROPONIN Q4H Lab 07/30/23 22:50 Completed TROPONIN Stat Lab 07/30/23 20:10 Completed UA W/RFX UR CULTURE Stat Lab 07/30/23 21:28 Completed Urine Triage Profile Stat Lab 07/30/23 23:57 Completed VENOUS BLOOD GAS Stat Lab 07/30/23 20:11 Completed Medication Summary Discontinued Medications Generic Name Dose Route Start Last Admin Trade Name Freq PRN Reason Stop Dose Admin Aspirin 324 mg 07/30/23 23:41 07/30/23 23:51 Aspirin 81 Mg Tab.Chew PO 07/30/23 23:42 324 mg STAT ONE Administration Sodium Chloride 1,000 mls @ 999 mls/hr 07/30/23 20:09 07/30/23 21:31 Sodium Chloride 0.9% 1000 Ml IV 07/30/23 21:09 Infused .Q1H1M STA Infusion Sodium Chloride Confirm 07/30/23 20:16 Sodium Chloride 0.9% 1000 Ml Administered 07/30/23 20:17 Dose 1,000 mls @ ud .ROUTE .STK-MED ONE Lorazepam 1 mg 07/31/23 00:00 07/31/23 00:25 Lorazepam 2 Mg/1 Ml 2 Mg Vial IV 07/31/23 00:01 1 mg STAT ONE Administration Lorazepam Confirm 07/31/23 00:15 Lorazepam 2 Mg/1 Ml 2 Mg Vial Administered 07/31/23 00:16 Dose 2 mg .ROUTE .STK-MED ONE Potassium Chloride 40 meq 07/30/23 21:01 07/30/23 21:14 Potassium Chloride Tab 10 Meq Tab PO 07/30/23 21:02 40 meq STAT ONE Administration Potassium Chloride Confirm 07/30/23 21:10 Potassium Chloride Tab 10 Meq Tab Administered 07/30/23 21:11 Dose 40 meq .ROUTE .STK-MED ONE Lab/Rad Data: Laboratory Result Diagrams 07/30/23 20:10 07/30/23 20:10 Laboratory Results 07/30/23 07/30/23 07/30/23 Range/Units 23:57 22:50 22:31 WBC (4.0-10.5) x10^3/uL RBC (4.1-5.6) x10^6/uL Hgb (12.5-18.0) g/dL Hct (42-50) % MCV (78-100) fL MCH (26-32) pg MCHC (32-36) g/dL RDW (11.5-14.0) % Plt Count (150-450) x10^3/uL MPV (7.5-11.0) fL Gran % (36.0-66.0) % Immature Gran % (Auto) (0.00-0.4) % Nucleat RBC Rel Count (0.00-0.1) % Eos # (Auto) (0-0.5) x10^3/uL Immature Gran # (Auto) (0.00-0.03) x10^3u/L Absolute Lymphs (auto) (1.0-4.6) x10^3/uL Absolute Monos (auto) (0.0-1.3) x10^3/uL Absolute Nucleated RBC (0.00-0.01) x10^3u/L Lymphocytes % (24.0-44.0) % Monocytes % (0.0-12.0) % Eosinophils % (0.00-5.0) % Basophils % (0.0-0.4) % Absolute Granulocytes (1.4-6.9) x10^3/uL Basophils # (0-0.4) x10^3/uL pO2/FiO2 Ratio % VBG pH (7.32-7.42) VBG pCO2 at Pat Temp (42-55) mm/Hg VBG pO2 at Pat Temp (25-40) mm/Hg VBG HCO3 (22-28) meq/L VBG O2 Sat (Manuel) (95-100) VBG Base Excess (-2.0-2.0) VBG Hemoglobin VBG Carboxyhemoglobin (0.0-6.9) % T HGB POC Potassium (3.5-5.1) Sodium (135-145) mmol/L Potassium (3.5-5.1) mmol/L Chloride (98-107) mmol/L Carbon Dioxide (22-30) mmol/L Anion Gap (5-15) MEQ/L BUN (9-20) mg/dL Creatinine (0.66-1.25) mg/dL Estimated GFR ML/MIN Glucose (74-106) mg/dL POC Glucometer (74 to 106) mg/dL Lactic Acid 0.9 (0.4-2.0) Calcium (8.4-10.2) mg/dL Magnesium (1.6-2.3) mg/dL Total Bilirubin (0.2-1.3) mg/dL AST (17-59) U/L ALT (0-50) U/L Alkaline Phosphatase (38-126) U/L Troponin I 0.045 H* (0.000-0.033) ng/mL Serum Total Protein (6.3-8.2) g/dL Albumin (3.5-5.0) g/dL Urine Color (Yellow) Urine Appearance (Clear) Urine pH (4.6-8.0) Ur Specific Harbert (1.005-1.030) Urine Protein (Negative) Urine Glucose (UA) (Negative) mg/dL Urine Ketones (Negative) Urine Blood (Negative) Urine Nitrite (Negative) Urine Bilirubin (Negative) Urine Urobilinogen (0.2) mg/dL Ur Leukocyte Esterase (Negative) U Hyaline Cast (Auto) (0-2) /LPF Urine Microscopic RBC (0-5) /HPF Urine Microscopic WBC (0-5) /HPF Ur Epithelial Cells (None Seen) /HPF Urine Bacteria (None Seen) /HPF Urine Culture Reflexed (NO) Urine Opiates Level NEGATIVE (NEGATIVE) Ur Methadone NEGATIVE (NEGATIVE) Urine Barbiturates NEGATIVE (NEGATIVE) Ur Phencyclidine (PCP) NEGATIVE (NEGATIVE) Urine Amphetamine NEGATIVE (NEGATIVE) U Benzodiazepine Level NEGATIVE (NEGATIVE) Urine Cocaine NEGATIVE (NEGATIVE) Urine Marijuana (THC) NEGATIVE (NEGATIVE) Ethyl Alcohol (0-10) mg/dL 07/30/23 07/30/23 07/30/23 Range/Units 21:28 20:11 20:10 WBC (4.0-10.5) x10^3/uL RBC (4.1-5.6) x10^6/uL Hgb (12.5-18.0) g/dL Hct (42-50) % MCV (78-100) fL MCH (26-32) pg MCHC (32-36) g/dL RDW (11.5-14.0) % Plt Count (150-450) x10^3/uL MPV (7.5-11.0) fL Gran % (36.0-66.0) % Immature Gran % (Auto) (0.00-0.4) % Nucleat RBC Rel Count (0.00-0.1) % Eos # (Auto) (0-0.5) x10^3/uL Immature Gran # (Auto) (0.00-0.03) x10^3u/L Absolute Lymphs (auto) (1.0-4.6) x10^3/uL Absolute Monos (auto) (0.0-1.3) x10^3/uL Absolute Nucleated RBC (0.00-0.01) x10^3u/L Lymphocytes % (24.0-44.0) % Monocytes % (0.0-12.0) % Eosinophils % (0.00-5.0) % Basophils % (0.0-0.4) % Absolute Granulocytes (1.4-6.9) x10^3/uL Basophils # (0-0.4) x10^3/uL pO2/FiO2 Ratio 21.0 % VBG pH 7.59 H* (7.32-7.42) VBG pCO2 at Pat Temp 22 L* (42-55) mm/Hg VBG pO2 at Pat Temp 78 H (25-40) mm/Hg VBG HCO3 21.1 L (22-28) meq/L VBG O2 Sat (Manuel) 97.7 (95-100) VBG Base Excess 1.8 (-2.0-2.0) VBG Hemoglobin 16.7 VBG Carboxyhemoglobin 4.2 (0.0-6.9) % T HGB POC Potassium 3.5 (3.5-5.1) Sodium 140 (135-145) mmol/L Potassium 3.4 L (3.5-5.1) mmol/L Chloride 107 (98-107) mmol/L Carbon Dioxide 18 L (22-30) mmol/L Anion Gap 18.2 H (5-15) MEQ/L BUN 14 (9-20) mg/dL Creatinine 0.86 (0.66-1.25) mg/dL Estimated GFR 105.5 ML/MIN Glucose 215 H (74-106) mg/dL POC Glucometer (74 to 106) mg/dL Lactic Acid (0.4-2.0) Calcium 10.0 (8.4-10.2) mg/dL Magnesium 2.1 (1.6-2.3) mg/dL Total Bilirubin 0.70 (0.2-1.3) mg/dL AST 39 (17-59) U/L ALT 45 (0-50) U/L Alkaline Phosphatase 92 (38-126) U/L Troponin I < 0.012 (0.000-0.033) ng/mL Serum Total Protein 8.1 (6.3-8.2) g/dL Albumin 5.1 H (3.5-5.0) g/dL Urine Color Yellow (Yellow) Urine Appearance Clear (Clear) Urine pH 8.0 (4.6-8.0) Ur Specific Harbert >=1.030 A (1.005-1.030) Urine Protein Negative (Negative) Urine Glucose (UA) >=1000 A (Negative) mg/dL Urine Ketones Negative (Negative) Urine Blood Negative (Negative) Urine Nitrite Negative (Negative) Urine Bilirubin Negative (Negative) Urine Urobilinogen 1.0 A (0.2) mg/dL Ur Leukocyte Esterase Negative (Negative) U Hyaline Cast (Auto) NONE SEEN (0-2) /LPF Urine Microscopic RBC 0-2 (0-5) /HPF Urine Microscopic WBC 6-10 A (0-5) /HPF Ur Epithelial Cells None Seen (None Seen) /HPF Urine Bacteria None Seen (None Seen) /HPF Urine Culture Reflexed ORDERED SEPARATELY (NO) Urine Opiates Level (NEGATIVE) Ur Methadone (NEGATIVE) Urine Barbiturates (NEGATIVE) Ur Phencyclidine (PCP) (NEGATIVE) Urine Amphetamine (NEGATIVE) U Benzodiazepine Level (NEGATIVE) Urine Cocaine (NEGATIVE) Urine Marijuana (THC) (NEGATIVE) Ethyl Alcohol < 10 (0-10) mg/dL 07/30/23 07/30/23 07/30/23 Range/Units 20:10 20:09 19:51 WBC 10.5 (4.0-10.5) x10^3/uL RBC 5.49 (4.1-5.6) x10^6/uL Hgb 16.1 (12.5-18.0) g/dL Hct 45.6 (42-50) % MCV 83.1 (78-100) fL MCH 29.3 (26-32) pg MCHC 35.3 (32-36) g/dL RDW 12.2 (11.5-14.0) % Plt Count 300 (150-450) x10^3/uL MPV 10.5 (7.5-11.0) fL Gran % 59.3 (36.0-66.0) % Immature Gran % (Auto) 0.4 (0.00-0.4) % Nucleat RBC Rel Count 0.0 (0.00-0.1) % Eos # (Auto) 0.49 (0-0.5) x10^3/uL Immature Gran # (Auto) 0.04 H (0.00-0.03) x10^3u/L Absolute Lymphs (auto) 2.97 (1.0-4.6) x10^3/uL Absolute Monos (auto) 0.67 (0.0-1.3) x10^3/uL Absolute Nucleated RBC 0.00 (0.00-0.01) x10^3u/L Lymphocytes % 28.4 (24.0-44.0) % Monocytes % 6.4 (0.0-12.0) % Eosinophils % 4.7 (0.00-5.0) % Basophils % 0.8 (0.0-0.4) % Absolute Granulocytes 6.20 (1.4-6.9) x10^3/uL Basophils # 0.08 (0-0.4) x10^3/uL pO2/FiO2 Ratio % VBG pH (7.32-7.42) VBG pCO2 at Pat Temp (42-55) mm/Hg VBG pO2 at Pat Temp (25-40) mm/Hg VBG HCO3 (22-28) meq/L VBG O2 Sat (Manuel) (95-100) VBG Base Excess (-2.0-2.0) VBG Hemoglobin VBG Carboxyhemoglobin (0.0-6.9) % T HGB POC Potassium (3.5-5.1) Sodium (135-145) mmol/L Potassium (3.5-5.1) mmol/L Chloride (98-107) mmol/L Carbon Dioxide (22-30) mmol/L Anion Gap (5-15) MEQ/L BUN (9-20) mg/dL Creatinine (0.66-1.25) mg/dL Estimated GFR ML/MIN Glucose (74-106) mg/dL POC Glucometer 227 H (74 to 106) mg/dL Lactic Acid 2.8 H (0.4-2.0) Calcium (8.4-10.2) mg/dL Magnesium (1.6-2.3) mg/dL Total Bilirubin (0.2-1.3) mg/dL AST (17-59) U/L ALT (0-50) U/L Alkaline Phosphatase (38-126) U/L Troponin I (0.000-0.033) ng/mL Serum Total Protein (6.3-8.2) g/dL Albumin (3.5-5.0) g/dL Urine Color (Yellow) Urine Appearance (Clear) Urine pH (4.6-8.0) Ur Specific Harbert (1.005-1.030) Urine Protein (Negative) Urine Glucose (UA) (Negative) mg/dL Urine Ketones (Negative) Urine Blood (Negative) Urine Nitrite (Negative) Urine Bilirubin (Negative) Urine Urobilinogen (0.2) mg/dL Ur Leukocyte Esterase (Negative) U Hyaline Cast (Auto) (0-2) /LPF Urine Microscopic RBC (0-5) /HPF Urine Microscopic WBC (0-5) /HPF Ur Epithelial Cells (None Seen) /HPF Urine Bacteria (None Seen) /HPF Urine Culture Reflexed (NO) Urine Opiates Level (NEGATIVE) Ur Methadone (NEGATIVE) Urine Barbiturates (NEGATIVE) Ur Phencyclidine (PCP) (NEGATIVE) Urine Amphetamine (NEGATIVE) U Benzodiazepine Level (NEGATIVE) Urine Cocaine (NEGATIVE) Urine Marijuana (THC) (NEGATIVE) Ethyl Alcohol (0-10) mg/dL - Progress Progress: improved Progress Note: 07/30/23 20:35 On reevaluation, patient is comfortable, he states he does remember having intraventricular hemorrhage and having a mismatch pupil with the left being greater than the right one that he did not remember initially 07/30/23 22:38 Patient feels well overall, and has no symptoms currently with no dizziness, no chest pain, no shortness of breath, no vision changes, no spinning sensation, no loss of vision, no double vision, patient physical exam shows no new focal neurologic deficits is GCS 15, coordination and strength are intact, all 4 visual taylor bilaterally are intact and patient still has anisocoria in place with left side being greater than right but no other changes otherwise 07/30/23 23:35 Patient is a diabetic who came in feeling generalized weakness, with narrowing of his vision and has a past history of intraventricular hemorrhage, so CT was performed that showed no acute abnormalities and this is all of the CTA of the head and neck with those negative for any signs of thrombosis, hemorrhage or aneurysm with no other signs of any edema or swelling or any other abnormality on the brain that was able to be seen. Patient negative EKG for acute findings, initial negative troponin, and he did have an elevated lactic acid so he was hydrated, and found a slight low potassium so was given oral replacement here in the emergency room. With glucose only being at 215, he did not require any insulin at this time. Patient had significant improvement with a lactic acid went down from 2.8 initially down to 0.9, but his second troponin went up from initial of negative to 0.045, so patient will require transfer and selected [facility] in [place], [place], but [facility] is not accepting any transfers to the emergency department, so patient was discussed with [facility] who accept the patient transferred to the emergency department 07/31/23 01:04 Patient is doing well after his IV Ativan, and he was accepted for transfer to [facility] emergency department Counseled pt/family regarding: lab results, diagnosis, need for follow-up, rad results Medical Desision Making - Discussion of managment Care discussed with:: specialist (At 12:57 AM on July 31, 2023, discussed the patient with Katya at [facility] transfer center and patient was accepted to the emergency room at [facility] by Katya on behalf of Dr. Alvarado) Reviewed:: Test results, Need for additional workup Agreed on:: Treatment plan, need for follow-up Will see patient: in ED - Diagnostic Testing Diagnostic test were ordered, analyzed, and reviewed by me: Yes Radiological Interpretation: Interpreted by me, Reviewed by me - Risk of complications The pt has a mod risk of morbidity or mortality based on: Need for prescription drug management The pt has a high risk of morbidity or mortality based on: Decision regarding hospitilization or escalation of hosp level of care - Departure Departure Disposition: Transfer ([facility] in [place], [place]) Clinical Impression: Generalized weakness, Vision changes, Hypokalemia, Respiratory alkalosis, Hyperglycemia due to diabetes mellitus, Elevated lactic acid level, Acute cor onary syndrome with high troponin Condition: Fair Critical Care Time: Yes Critical Care Time(excluding separately billable procedures): Critical 30-74 mins
[2023-07-30] MEDS ORDERED: Sodium Chloride 0.9% 1000 ML 1,000 ML ONE (20:16)
[2023-07-30] MEDS: Sodium Chloride 0.9% 1000 ML 1,000 ML IV STA (20:21)
[2023-07-30 20:29] LABS: BASOPHIL % 0.8 % (0.0-0.4); Basophil (Absolute #) 0.08 x10^3/uL (0-0.4); Eosinophil % 4.7 % (0.00-5.0); Eosinophil (Absolute #) 0.49 x10^3/uL (0-0.5); Hematocrit 45.6 % (42-50); Hemoglobin 16.1 g/dL (12.5-18.0); IMMATURE GRAN # 0.04 x10^3u/L (0.00-0.03); IMMATURE GRAN % 0.4 % (0.00-0.4); Lymphocyte (Absolute #) 2.97 x10^3/uL (1.0-4.6); Lymphocytes % 28.4 % (24.0-44.0); Mean Cell Volume 83.1 fL (78-100); Mean Corpuscular Hemoglobin 29.3 pg (26-32); Mean Corpuscular Hgb Concent. 35.3 g/dL (32-36); Mean Platelet Volume 10.5 fL (7.5-11.0); Monocyte (Absolute #) 0.67 x10^3/uL (0.0-1.3); Monocytes % 6.4 % (0.0-12.0); Neutrophil % 59.3 % (36.0-66.0); Platelet Count 300 x10^3/uL (150-450); Red Blood Count 5.49 x10^6/uL (4.1-5.6); Red Cell Distribution Width 12.2 % (11.5-14.0); White Blood Count 10.5 x10^3/uL (4.0-10.5)
[2023-07-30 20:36] LABS: VBG BASE EXCESS 1.8 (-2.0-2.0); VBG CARBOXYHEMOGLOBIN 4.2 % T HGB (0.0-6.9); VBG HCO3- 21.1 meq/L (22-28); VBG HEMOGLOBIN 16.7; VBG O2 SATURATION 97.7 (95-100); VBG POTASSIUM 3.5 (3.5-5.1); VBG pH 7.59 (7.32-7.42)
[2023-07-30 20:58] LABS: ALBUMIN 5.1 g/dL (3.5-5.0); ALKALINE PHOSPHATASE 92 U/L (38-126); ANION GAP 18.2 MEQ/L (5-15); BLOOD UREA NITROGEN 14 mg/dL (9-20); CHLORIDE 107 mmol/L (98-107); Carbon Dioxide 18 mmol/L (22-30); Creatinine 1 0.86 mg/dL (0.66-1.25); EST GLOMERULAR FILTRATION RATE 105.5 ML/MIN; ETHYL ALCOHOL < 10 mg/dL (0-10); Glucose 215 mg/dL (74-106); MAGNESIUM 2.1 mg/dL (1.6-2.3); Potassium 3.4 mmol/L (3.5-5.1); SGOT/AST 39 U/L (17-59); SGPT/ALT 45 U/L (0-50); SODIUM 140 mmol/L (135-145); TROPONIN < 0.012 ng/mL (0.000-0.033); Total Protein 8.1 g/dL (6.3-8.2)
[2023-07-30] MEDS ORDERED: Klor Con ONE (21:10)
[2023-07-30] MEDS: Klor Con PO ONE (21:14)
[2023-07-30 22:23] LABS: Appearance Clear (Clear); Bacteria None Seen /HPF (None Seen); Bilirubin Negative (Negative); Blood Negative (Negative); Epithelial Cells None Seen /HPF (None Seen); Glucose, Urine >=1000 mg/dL (Negative); Hyaline Casts NONE SEEN /LPF (0-2); Ketones Negative (Negative); Leukocyte Esterase Negative (Negative); Nitrite Negative (Negative); Protein,Urine Dip Negative (Negative); RBC 0-2 /HPF (0-5); Specific Gravity >=1.030 (1.005-1.030)
[2023-07-30 22:24] LABS: ADD URINE CULTURE? ORDERED SEPARATELY (NO)
[2023-07-30] MEDS: BABY ASPIRIN 81 MG CHEW PO ONE (23:51)
[2023-07-31] MEDS ORDERED: Ativan 2 MG/1 ML VIAL ONE (00:15)
[2023-07-31] MEDS: Ativan 2 MG/1 ML VIAL IV ONE (00:25)
[2023-07-31 00:47] LABS: Amphetamine,Urine NEGATIVE (NEGATIVE); Barbiturate,Urine NEGATIVE (NEGATIVE); Benzodiazepine,Urine NEGATIVE (NEGATIVE); Cocaine,Urine NEGATIVE (NEGATIVE); Methadone,Urine NEGATIVE (NEGATIVE); Opiate,Urine NEGATIVE (NEGATIVE); PCP,Urine NEGATIVE (NEGATIVE); THC,Urine NEGATIVE (NEGATIVE)
[2023-07-31 01:05] VITALS: RESP 18
[2023-07-31 01:32] VITALS: BP 158/97; PULSE 79; O2SAT 93
--- NOTE | 2023-07-31 01:58 | XRAY ---
CLINICAL HISTORY: unequal pupils COMPARISON: None. TECHNIQUE: Axial noncontrast CT scan of the brain was performed from the skull base to the high parietal region with multiple reformats. One of the following dose reduction techniques were utilized for this exam: Automated exposure control, adjustment of the mA and/or kV according to patient size, use of iterative reconstruction? FINDINGS: Frontal craniotomy holes are noted. Right frontal track like CSF density with surrounding patchy hypodense area. Bilateral frontal periventricular patchy hypodensities'. Bilateral fronto-parietal periventricular and subcortical hypodense foci are noted. Left thalamic area of CSF like density with exvacudilataion of the 3rd ventricle. Left basal ganglia tiny hypodense focus. The aguila-white mater differentiation is preserved. Pontine hypodense foci, possibly artifactual . Normal CT appearance of the rest of the posterior fossa structures namely the cerebellar hemispheres and cerebellar peduncles. No intracerebral or extra axial hematoma. Asymmetrically dilated lateral ventricles, more on the left side with dilated 3rd ventricle. No 4th ventricular dilatation. No midline shifts or deformity. No definite calvarial fractures. The osseous structures in the skull base are unremarkable. Focal opacification of the right mastoid air cells. The scanned paranasal sinuses show polypod mucosal thickening of the maxillary antra showing hyperdensities with mucosal thickening of the sphenoid and ethmoidal sinuses. IMPRESSION: 1. Frontal craniotomy holes are noted. 2. Right frontal track like CSF density with surrounding patchy hypodense area, possibly sequel of prior shunt application. 3. Bilateral cerebral hypodense foci and patches, possibly ischemic/vasculopathic with left thalamic area of encephalomalacia. 4. Supratentorial ventriculomegaly. 5. No intra or extra-axial hematomas or parenchymal territorial hypodense areas suggestive of acute ischemic insult. Early changes of stroke may not be detected on a CT scan. If strong clinical suspicion of stroke then suggest MRI with diffusion-weighted imaging. Electronically Signed by: Alphonso Nava MD. (07/31/2023 01:55:14 EDT)
--- NOTE | 2023-07-31 08:47 | XRAY ---
Indication: Vision change. History bleed. Two-dimensional contrast-enhanced CTA neck performed using 100 cc Isovue 370 contrast. 2-D sagittal and coronal reformatted images obtained. Additional 3-D reformatted images obtained using a separate workstation. Comparison: None Visualized aortic arch is normal in course and caliber without aneurysm. Widely patent branching right brachiocephalic, left common carotid, and left subclavian arteries. Normal CTA appearance to the common carotid, carotid bulb, internal carotid, and external carotid arteries bilaterally. Posterior circulation demonstrates widely patent vertebral arteries bilaterally. Left vertebral artery is larger in caliber. CTA head reported separately. Visualized noncontrasted soft tissues demonstrates a few centimeter/subcentimeter cervical and submandibular lymph nodes, none pathologically enlarged. Parotid and submandibular glands are bilaterally symmetric. Thyroid gland enhances homogeneously. Supra-and infraglottic airway widely patent. Normal epiglottis. Visualized osseous structures intact with minimal degenerative changes throughout the cervical spine. Lung apices demonstrate minimal subpleural cystic changes. Impression: Normal CTA neck with contrast exam.
--- NOTE | 2023-07-31 08:51 | XRAY ---
Indication: Vision change. History bleed. Two-dimensional contrast-enhanced CTA head performed using 100 cc Isovue 370 contrast. 2-D sagittal and coronal reformatted images obtained. Additional 3-D reformatted images obtained using a separate workstation. Comparison: None CTA neck reported separately. Distal internal carotid arteries are bilaterally symmetric and widely patent. Normal carotid terminus with normal branching A1 and M1 segments bilaterally. More distal anterior cerebral and middle cerebral arteries are normal in CTA appearance. Normal anterior communicating and posterior communicating arteries. Posterior circulation demonstrates normal CTA appearance to the basilar, left/right posterior cerebral, left/right superior cerebellar, and left/right anterior inferior cerebellar arteries. Venous sinuses/drainage are unremarkable. No abnormal enhancing intra-or extra-axial mass. Impression: Normal CTA head with contrast exam.
--- NOTE | 2023-07-31 09:01 | XRAY ---
Indication: General weakness. Comparison: March 01, 2020 Portable chest better inflated and clear. Heart not enlarged. Bony thorax intact again with osteopenia, mild degenerative changes, and epidural stimulator leads terminating T10. Impression: Nonacute chest with chronic features.
== END 2023-07-31 01:55 | disposition short-term general hospital (02) ==
LOC: ED 19:43
DX: I24.9 Acute ischemic heart disease, unspecified (principal); R77.8 Other specified abnormalities of plasma proteins; R53.1 Weakness; H53.9 Unspecified visual disturbance; E87.6 Hypokalemia; E87.3 Alkalosis; E11.65 Type 2 diabetes mellitus with hyperglycemia; R74.8 Abnormal levels of other serum enzymes; I10 Essential (primary) hypertension; E78.5 Hyperlipidemia, unspecified; Z79.84 Long term (current) use of oral hypoglycemic drugs; Z79.899 Other long term (current) drug therapy; Z72.0 Tobacco use
CPT/HCPCS: 36000; 36415; 70450; 70496; 70498; 71045; 80053; 80307; 81001; 82077; 82805; 82947; 83605; 83735; 84484; 85025; 87086; 93005; 93041; 96374; 99285; 99291; J2060; A9270-GY